=== PATIENT | male | born 1965 | race Caucasian/White ===

== ENCOUNTER 2024-07-24 18:06 | Inpatient (IN) | payer BC, MEDICAID, SELFPAY ==
[2024-07-24] VITALS (8 sets, daily range): BP systolic 124–138; BP diastolic 78–90; PULSE 82–92; RESP 18–19; TEMP 36.6–36.7; O2SAT 89–95; BMI 25.9
--- NOTE | 2024-07-24 18:11 | XRR_ITS ---
PROCEDURE INFORMATION: Exam: XR Chest Exam date and time: 07/24/2024 6:44 PM Age: 59 years old Clinical indication: Shortness of breath TECHNIQUE: Imaging protocol: Radiologic exam of the chest. Views: 1 view. COMPARISON: No relevant prior studies available. FINDINGS: Lungs: Unremarkable. No consolidation. Pleural spaces: Unremarkable. No pleural effusion. No pneumothorax. Heart/Mediastinum: Unremarkable. No cardiomegaly. Bones/joints: Unremarkable. XR/XR chest 1V portable [id number] IMPRESSION: No acute findings.
--- NOTE | 2024-07-24 18:20 | ECG_ITS ---
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 [email or web address]
--- NOTE | 2024-07-24 18:24 | ED_ITS ---
HPI - SOB/Dyspnea 2 General: Chief Complaint: Shortness of Breath/Dyspnea Stated Complaint: COPD Time Seen by Provider: 07/24/24 18:07 History of Present Illness: HPI Narrative: 59-year-old man with a history of tobacc o dependence and COPD who presents emergency room by ambulance with shortness of breath. He has had increased cough. He has some pain in his chest with his cough. No lower extremity swelling. No known fevers but he has felt hot at times he says. No altered mental status. No focal motor deficits. No nausea or vomiting Related Data Allergies Allergy/AdvReac Type Severity Reaction Status Date / Time quetiapine [From Seroquel] Allergy ADR-Anxiety Verified 07/24/24 18:12 Review of Systems 2 Narrative: Constitutional symptoms: Negative except as documented in HPI. Skin symptoms: Negative except as documented in HPI. Eye symptoms: Negative except as documented in HPI. ENMT symptoms: Negative except as documented in HPI. Respiratory symptoms: Negative except as documented in HPI. Cardiovascular symptoms: Negative except as documented in HPI. Gastrointestinal symptoms: Negative except as documented in HPI. Genitourinary symptoms: Negative except as documented in HPI. Musculoskeletal symptoms: Negative except as documented in HPI. Neurologic symptoms: Negative except as documented in HPI. Psychiatric symptoms: Negative except as documented in HPI. Endocrine symptoms: Negative except as documented in HPI. Physical Exam 2 Narrative: EXAM NARRATIVE: General: Alert, no acute distress. Skin: Warm, dry. Head: Normocephalic, atraumatic. Neck: Supple, trachea midline. Eye: Extraocular movements are intact. Ears, nose, mouth and throat: Oral mucosa moist. Cardiovascular: Regular rate and rhythm, Normal peripheral perfusion. Respiratory: coarse, scattered wheeze, mild increased wob. tachypnea, breath sounds are equal, Symmetrical chest wall expansion. Gastrointestinal: Soft, Nontender, Non distended, Normal bowel sounds. Musculoskeletal: Normal ROM, no deformity. Neurological: Alert and oriented to person, place, time, and situation, No focal neurological deficit observed. Psychiatric: Cooperative, appropriate mood & affect. Course 2 Vital Signs: Vital signs: Vital Signs Temperature 97.8 F 07/24/24 18:07 Pulse Rate 82 07/24/24 18:52 Respiratory Rate 18 07/24/24 18:30 Blood Pressure 130/85 07/24/24 18:52 Pulse Oximetry 91 07/24/24 18:52 Oxygen Delivery Me thod Room Air 07/24/24 18:30 MDM - SOB/Dyspnea Medical Decision Making Differential diagnosis for patient with shortness of breath includes but is not limited to and based on the above HPI, review of systems and physical exam: Pneumonia. Bronchitis. Asthma or COPD with acute exacerbation. Acute coronary syndrome / [place]. Pulmonary embolism. Anxiety. Congestive heart failure. Viral infections including influenza and Covid-19. Atrial fibrillation. Anxiety. Pleural effusion. Pneumothorax. Orders placed to evaluate differential diagnosis based on the above differential, HPI and physical exam EKG: Time 1820. Rate 79. Normal sinus rhythm, No ST-T changes, no ectopy, normal [place] & QRS intervals, This was reviewed and interpreted by myself the ER physician at 1825 Chest x-ray: No acute process. No infiltrate. No pneumothorax. This was reviewed and interpreted by myself the emergency room physician. I also reviewed the radiology report. Lab Review: Laboratory results were reviewed and interpreted by myself the emergency room physician. Leukocytosis with a white count 15.6. Hemoglobin is 18.6, slightly elevated. BUN/creatinine are normal at 7 and 0.6. Flu COVID and RSV are negative. Liver enzymes are normal. proBNP is negative. Lactate was slightly elevated at 2.7. ABG is 7.44/36/58 with an O2 sat of 92% on room air I reviewed the patient's medical record. Reexamination: When I entered the room to reexamine the patient he was sleeping. His oxygen saturation was in the mid 80s with a good waveform. He awoke without difficulty. Lungs still sound very tight and wheezy. Consultation: I spoke with Dr. Munoz who is on-call for the hospitalist service who agrees to admission to observation Assessment and plan: COPD with acute exacerbation Hypoxemia Tobacco dependence -2 updrafts, Solu-Medrol and doxycycline in the emergency room - I discussed the patient with the hospitalist on-call who is admitting the patient. - Discussed findings and plan with patient. Answered any questions. - All laboratory values were reviewed and interpreted personally by myself, the ER physician - All imaging was reviewed and interpreted personally by myself, the ER physician. - Evaluation and treatment of this problem were appropriate in the emergency setting Lab Data 07/24/24 18:42 07/24/24 18:42 Labs/Radiology: Laboratory Results WBC 15.63 10^3/uL (3.29-11.43) H 07/24/24 18:42 RBC 6.01 10^6/uL (3.85-5.65) H 07/24/24 18:42 Hgb 18.60 g/dL (11.27-16.99) H 07/24/24 18:42 Hct 54.9 % (37-53) H 07/24/24 18:42 MCV 91.3 fl (82-101) 07/24/24 18:42 MCH 30.9 pg (27-33) 07/24/24 18:42 MCHC 33.9 g/dL (30-55) 07/24/24 18:42 RDW 13.9 % (12.1-15.1) 07/24/24 18:42 Plt Count 155 10^3/cmm (157-399) L 07/24/24 18:42 MPV 12.1 fL (7.4-10.4) H 07/24/24 18:42 Neut % (Auto) 80.7 % 07/24/24 18:42 Lymph % (Auto) 10.7 % 07/24/24 18:42 [place] % (Auto) 7.9 % 07/24/24 18:42 Eos % (Auto) 0.2 % 07/24/24 18:42 Baso % (Auto) 0.2 % 07/24/24 18:42 Neut # (Auto) 12.62 10^3/uL (1.8-7.7) H 07/24/24 18:42 Lymph # (Auto) 1.7 10^3/uL (0.8-4.8) 07/24/24 18:42 [place] # (Auto) 1.2 10^3/uL (0.2-0.9) H 07/24/24 18:42 Eos # (Auto) 0.0 10^3/uL (0.0-0.8) 07/24/24 18:42 Baso # (Auto) 0.0 10^3/uL (0.0-0.1) 07/24/24 18:42 Nucleated RBC % (auto) 0 % 07/24/24 18:42 Nucleated RBCs # 0.0 /100WBC 07/24/24 18:42 Specimen Type Arterial 07/24/24 18:31 Sample Site Radial, left 07/24/24 18:31 ABG pH 7.44 (7.35-7.45) 07/24/24 18:31 ABG pCO2 36.1 mmHg (35-45) 07/24/24 18:31 ABG pO2 57.9 mmHg (80.0-100.0) L 07/24/24 18:31 ABG PO2/FiO2 Ratio 275 07/24/24 18:31 ABG HCO3 24.7 mmol/L (22-26) 07/24/24 18:31 ABG O2 Saturation 92.1 07/24/24 18:31 ABG Base Excess 1.0 mmol/L (-2.0-2.0) 07/24/24 18:31 [place] Test Pos 07/24/24 18:31 A-a O2 Gradient 5.9 mmHg (5-10) 07/24/24 18:31 Hematocrit 57.4 % (42-52) H 07/24/24 18:31 Hgb O2 Saturation 86.1 % (95-100) L 07/24/24 18:31 Carboxyhemoglobin 5.5 %THgb (0.4-20.1) 07/24/24 18:31 Methemoglobin 0.9 % (0.4-1.5) 07/24/24 18:31 Total Hemoglobin 18.7 g/dL (14-18) H 07/24/24 18:31 Sodium 140.0 mmol/L (131-143) 07/24/24 18:31 Potassium 3.7 mmol/L (3.5-5.0) 07/24/24 18:31 Glucose 108.0 mg/dL (70-115) 07/24/24 18:31 Ionized Calcium 1.1 mmol/L (1.1-1.4) 07/24/24 18:31 O2 Delivery Device Room air 07/24/24 18:31 FiO2 21.0 % 07/24/24 18:31 Laboratory Tester ID Amh 07/24/24 18:31 Sodium 136 mmol/L (136-145) 07/24/24 18:42 Potassium 4.0 mmol/L (3.5-5.1) 07/24/24 18:42 Chloride 96 mmol/L (98-107) L 07/24/24 18:42 Carbon Dioxide 24 mmol/L (22-29) 07/24/24 18:42 Anion Gap 20.0 (5-19) H 07/24/24 18:42 BUN 7 mg/dL (8-23) L 07/24/24 18:42 Creatinine 0.6 mg/dL (0.7-1.2) L 07/24/24 18:42 GFR Calculation 137.0 mL/min (90-130) H 07/24/24 18:42 Glucose 101 mg/dL (65-115) 07/24/24 18:42 Calculated Osmolality 280 mOsm/kg (285-295) L 07/24/24 18:42 Lactic Acid 2.7 mmol/L (0.5-2.2) H 07/24/24 18:42 Calcium 9.6 mg/dL (8.5-10.5) 07/24/24 18:42 Total Bilirubin 0.8 mg/dL (0.15-1.2) 07/24/24 18:42 AST 16 U/L (0-40) 07/24/24 18:42 ALT 17 U/L (0-41) 07/24/24 18:42 Alkaline Phosphatase 112 U/L (40-130) 07/24/24 18:42 Troponin T Baseline 7 ng/L (0-15) 07/24/24 18:42 NT-Pro-B Natriuret Pep 52 pg/mL (0-125) 07/24/24 18:42 Total Protein 7.0 g/dL (6.6-8.7) 07/24/24 18:42 Albumin 4.7 g/dL (3.5-5.2) 07/24/24 18:42 Globulin 2.3 g/dL (1.3-4.6) 07/24/24 18:42 Coronavirus (PCR) Negative (Negative) 07/24/24 18:49 Influenza A (PCR) Negative (Negative) 07/24/24 18:49 Influenza Type B (PCR) Negative (Negative) 07/24/24 18:49 RSV (PCR) Negative (Negative) 07/24/24 18:49 All radiology interpretation(s) finalized by discharge Discharge Plan Discharge Patient Disposition: Placed in Observation Clinical Impression: COPD with acute exacerbation, Hypoxemia, Tobacco dependence Coding Level of Care Code ED 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
[2024-07-24] MEDS: ipratropium-albuterol 3 mL Neb INHALATION (18:29)
[2024-07-24] MEDS: albuterol 2.5 mg/3 mL Neb INHALATION (18:29)
[2024-07-24 18:42] LABS: ABG PCO2 36.1 mmHg (35-45); ABG PH Result 7.44 (7.35-7.45); Alveolar-Arterial Oxygen Gradi 5.9 mmHg (5-10); Arterial Blood Gas Hematocrit 57.4 % (42-52); Blood Gas Allen Test Pos; Blood Gas Operator Identificat AMH; Blood Gas Sample Site Radial, left; Blood Gas Sample Type Arterial; Carboxyhemoglobin 5.5 %THgb (0.4-20.1); HCO3 ABG 24.7 mmol/L (22-26); HGB O2 Sat 86.1 % (95-100); Ionized Calcium Level - ABG 1.1 mmol/L (1.1-1.4); Methemoglobin 0.9 % (0.4-1.5); Oxygen Device ROOM AIR; Oxygen Saturation ABG 92.1; PO2 ABG 57.9 mmHg (80.0-100.0); PO2 FiO2 Ratio Arterial Blood 275; Potassium Level - ABG 3.7 mmol/L (3.5-5.0); Total Hemoglobin 18.7 g/dL (14-18)
[2024-07-24] MEDS: methylPREDNISolone sod succ 125 mg/2 mL INJ IVP (18:50)
[2024-07-24 18:55] LABS: Basophils % 0.2 %; Eosinophils % 0.2 %; Hematocrit 54.9 % (37-53); Lymphocytes # 1.7 10^3/uL (0.8-4.8); Lymphocytes % 10.7 %; Mean Corpuscular HGB Conc 33.9 g/dL (30-55); Mean Corpuscular Hemoglobin 30.9 pg (27-33); Mean Corpuscular Volume 91.3 fl (82-101); Mean Platelet Volume 12.1 fL (7.4-10.4); Monocytes # 1.2 10^3/uL (0.2-0.9); Monocytes % 7.9 %; Neutrophils # 12.62 10^3/uL (1.8-7.7); Neutrophils % 80.7 %; Nucleated Red Blood Cells % 0 %; Platelet Count 155 10^3/cmm (157-399); Red Blood Count 6.01 10^6/uL (3.85-5.65); Red Cell Distribution Width 13.9 % (12.1-15.1); White Blood Count 15.63 10^3/uL (3.29-11.43)
[2024-07-24 19:16] LABS: Lactic Sepsis W/Reflex 2.7 mmol/L (0.5-2.2)
[2024-07-24 19:20] LABS: Troponin(5th) Baseline 7 ng/L (0-15)
[2024-07-24 19:27] LABS: Alanine Aminotransferase 17 U/L (0-41); Albumin Level 4.7 g/dL (3.5-5.2); Alkaline Phosphatase 112 U/L (40-130); Aspartate Amino Transferase 16 U/L (0-40); Blood Urea Nitrogen 7 mg/dL (8-23); Calcium 9.6 mg/dL (8.5-10.5); Carbon Dioxide 24 mmol/L (22-29); Chloride 96 mmol/L (98-107); Creatinine Clr Calc Pharmacy 157.2144; Globulin 2.3 g/dL (1.3-4.6); Glucose 101 mg/dL (65-115); NT Pro B Type Natriuretic Pept 52 pg/mL (0-125); Osmolality Calculated 280 mOsm/kg (285-295); Sodium 136 mmol/L (136-145); Total Bilirubin 0.8 mg/dL (0.15-1.2)
[2024-07-24 19:38] LABS: Covid PCR NEGATIVE (Negative); Influenza A NEGATIVE (Negative); Influenza B NEGATIVE (Negative); Respiratory Syncytial Virus Ce NEGATIVE (Negative)
[2024-07-24] MEDS: doxycycline 100 MG in sodium chloride 0.9% (plus) 100 ML IV (19:39)
[2024-07-24 20:03] LABS: Bilirubin Urine Negative (Negative); Blood Urine Negative (Negative); Glucose Urine UA Negative (Normal); Ketones Urine Negative (Negative); Leukocyte Esterase Urine Negative (Negative); Nitrate Urine Negative (Negative); Protein Urine Negative (Negative); Specific Gravity, Urine 1.003 (1.005-1.030); Urine Appearance Clear (CLEAR); Urine Color Yellow (Yellow); Urobilinogen Urine 0.2 mg/dL (Negative); pH Urine 5.5 (5-7)
[2024-07-24 20:07] LABS: Bacteria Urine None Seen /hpf; Hyaline Casts Urine 0-4 /lpf; RBC Urine 0-2 /hpf (0-2); Squamous Epithelial Cell Urine 0-5 /hpf (0-5); WBC Urine 0-5 /hpf (0-5)
[2024-07-24 20:09] LABS: Amphetamines Screen Urine Negative (Negative); Barbiturates Screen Urine Negative (Negative); Benzodiazepines Screen Urine Negative (Negative); Cocaine Screen Urine Negative (Negative); Opiate Screen Urine Negative (Negative); PCP Screen Urine Negative (Negative); THC Screen Urine Negative (Negative)
[2024-07-24 20:12] LABS: D Dimer <= 0.27 ug/mLFEU (0-0.59)
[2024-07-24 20:34] LABS: Procalcitonin 0.06 ng/mL (0-0.5)
[2024-07-24 20:39] LABS: Reflex Lactate Order REFLEX LACTIC ORDERD
--- NOTE | 2024-07-24 21:00 | PM.HP ---
Providers/Chief Complaint Admitting Physician: Demetrius Munoz MD Chief Complaint: COPD History of Present Illness Tanner Rockwell is a 59 year old male with a past medical history of smoking and COPD who presented to the emergency room with shortness of breath. Patient states he had had increased cough over the past 3 to 4 days along with subjective chills. no h/o chest pain, palpitation or syncope. His O2 sat was in the low 80s upon arrival and needed to be placed on supplemental O2 at 3.5 L/min. Review of Systems General: Reports: 10 or more systems reviewed and unremarkable except in HPI and below Const: Denies: fever(s), chills or body aches Eyes: Denies: change in vision, blurry vision or photophobia ENMT: Reports: hoarseness; Denies: throat pain, enlarged tonsils, odynophagia or nasal congestion Card: Denies: chest pain, palpitations, irregular heart rhythm, edema, swelling of feet/ankles, lightheadedness, pre-syncope, dyspnea on exertion or orthopnea Resp: Denies: dyspnea, productive cough, non-productive cough, wheezing, stridor, pain on inspiration, change in phlegm color, hemoptysis or chest congestion GI: Denies: abdominal pain, nausea, vomiting, hematemesis, coffee ground emesis, dysphagia, heartburn, diarrhea, constipation, GI cramping, change in stool character, hematochezia or melena : Denies: flank pain, dysuria, urinary frequency, urinary urgency, urinary hesitancy or hematuria Musc: Denies: neck pain, back pain, extremity pain, joint swelling, joint warmth or deformity Neuro: Denies: headache(s), numbness in extremities, weakness in extremities, sensory changes, difficulty walking, frequent falls, dizziness, vertigo, behavioral changes, Slurred speech present or seizure-like activity Psych: Denies: anxiety, depression, suicidal ideation or homicidal ideation Endo: Denies: polyuria, polydipsia, tired all the time, cold intolerance or hot flashes Robert/Lymph: Denies: easy bruising or easy bleeding Medications/Allergies Home Medications Medication Instructions Recorded Confirmed Last Taken Type No Known Home Medications 07/24/24 07/24/24 Unknown History Allergies Allergy/AdvReac Type Severity Reaction Status Date / Time quetiapine [From SeroMayvennl] Allergy ADR-Anxiety Verified 07/24/24 18:12 Vitals/I&O/Wt Last Vital Signs Temp 98.3 F 07/25/24 00:00 Pulse 78 07/25/24 00:00 Resp 22 H 07/25/24 00:00 BP 118/63 07/25/24 00:00 Pulse Ox 92 07/25/24 00:00 O2 Del Method Nasal Cannula 07/25/24 00:00 07/24/24 07/24/24 07/25/24 14:59 22:59 06:59 Intake Total 100 / 100 Balance 100 / 100 Weight last 48 hrs Weight 90.038 kg Weight 91.626 kg Physical Exam Narrative: General: No acute distress, AO x3 HEENT: PERRLA, pupils bilaterally equal and reactive, pallors not present Chest: Bilateral wheezing on exam CVS: S1-S2 regular, no murmurs, no tachycardia, no gallops, no rubs Abdomen: wheezing to auscultation B/L Neuro: No focal deficits, no facial deformity, AO x3, power 5/5 in all limbs Data 07/24/24 18:42 07/24/24 18:42 Micro: Microbiology 07/24/24 19:44 Bacterial Antigens - Final Urine Kidney 07/24/24 21:33 Blood Culture - Preliminary Blood SPECIMEN COLLECTED 07/24/24 21:28 Blood Culture - Preliminary Blood SPECIMEN COLLECTED Other data: Signed Patient: Tanner Rockwell Unit #: [id number] : 1965 Age/Sex: 59 / M ADM Date: 07/24/24 Loc: ER Room/Bed: Attending Dr: Ordering Provider/Ordering MD: Sandra Kenney MD Date of Service: 07/24/24 Procedure(s): XR chest 1V portable [id number] Accession Number(s): [id number] Report Number: [id number] PROCEDURE INFORMATION: Exam: XR Chest Exam date and time: 07/24/2024 6:44 PM Age: 59 years old Clinical indication: Shortness of breath TECHNIQUE: Imaging protocol: Radiologic exam of the chest. Views: 1 view. COMPARISON: No relevant prior studies available. FINDINGS: Lungs: Unremarkable. No consolidation. Pleural spaces: Unremarkable. No pleural effusion. No pneumothorax. Heart/Mediastinum: Unremarkable. No cardiomegaly. Bones/joints: Unremarkable. XR/XR chest 1V portable [id number] IMPRESSION: No acute findings. A&P Assessment and plan (1) COPD with acute exacerbation: Admit to [facility] for COPD exacerbation Methylprednisolone 40 mg IV every 6 hours duoneb q6h, budesonide q12h empiric levofloxacin 750 mg po daialy given leukocytosis, cannot r/o acute bacterial bronchitis normal D dimer, less likely PE Plan dvt ppx: heparin 5000 s/c q12h Attestations Medical Necessity Statement*: less than 2 midnight stay anticipated at this time Coding Level of Care Code Acute Code for Chg Fwd Moderate MDM includes number and complexity of problems actively addressed during encounter, amount and/or complexity of data reviewed/ordered and described risk of complication, morbidity or mortality of management as documented Diagnoses COPD with acute exacerbation J44.1
[2024-07-24] MEDS: methylPREDNISolone sod succ 40 mg/mL INJ IVP (21:08)
[2024-07-24 22:17] LABS: Troponin 5 2HR 6.54 ng/L (0-15)
[2024-07-24 22:20] LABS: Lactic Acid level (Lactate) 3.7 mmol/L (0.5-2.2)
[2024-07-24 22:23] LABS: Troponin 5 2HR Delta -0.46 ABS# (0-10)
[2024-07-25] VITALS (14 sets, daily range): BP systolic 113–149; BP diastolic 63–85; PULSE 63–84; RESP 16–23; TEMP 36.4–36.8; O2SAT 91–96
[2024-07-25] MEDS: methylPREDNISolone sod succ 40 mg/mL INJ IVP ×4 (01:26→20:35)
[2024-07-25] MEDS: levalbuterol 0.63 mg/3 mL Neb INHALATION ×2 (04:29→14:08)
[2024-07-25] MEDS: ipratropium 0.5 mg/2.5 mL Neb INHALATION ×2 (04:29→14:08)
[2024-07-25] MEDS: famotidine 20 mg Tablet PO ×2 (09:18→17:59)
[2024-07-25] MEDS: levoFLOXacin 750 mg Tablet PO (09:18)
--- NOTE | 2024-07-25 12:29 | P.PN_ITS ---
Subjective 2 Subjective: Seen him at bedside this morning. States feeling better as compared to admission. Has had 3 episodes of COPD exacerbation in last 1 year, he is still active smoker. 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 Planning to go to [facility] after discharge. Medications: Reviewed: Yes Vitals/I&O/Wt Last Vital Signs Temp 97.8 F 07/25/24 11:59 Pulse 69 07/25/24 11:59 Resp 16 07/25/24 11:59 BP 128/79 07/25/24 11:59 Pulse Ox 93 07/25/24 11:59 O2 Del Method Nasal Cannula 07/25/24 11:59 O2 Flow Rate 3 07/25/24 08:58 07/24/24 07/25/24 07/25/24 22:59 06:59 14:59 Intake Total 100 / 100 840 / 840 Output Total 250 / 250 450 / 450 Balance 100 / 100 -250 / -150 390 / 390 Weight last 48 hrs Weight 87.18 kg Weight 89.584 kg Weight 90.038 kg Weight 91.626 kg Physical Exam 2 Narrative: General: No acute distress, AO x3 HEENT: PERRLA, pupils bilaterally equal and reactive, pallors not present Chest: Bilateral wheezing on exam CVS: S1-S2 regular, no murmurs, no tachycardia, no gallops, no rubs Abdomen: wheezing to auscultation B/L Neuro: No focal deficits, no facial deformity, AO x3, power 5/5 in all limbs Data 07/24/24 18:42 07/24/24 18:42 Micro: Microbiology 07/24/24 19:44 Bacterial Antigens - Final Urine Kidney 07/24/24 21:33 Blood Culture - Preliminary Blood SPECIMEN COLLECTED 07/24/24 21:28 Blood Culture - Preliminary Blood SPECIMEN COLLECTED A&P Assessment and plan (1) COPD with acute exacerbation: Admit to [facility] for COPD exacerbation Methylprednisolone 40 mg IV every 6 hours duoneb q6h, budesonide q12h empiric levofloxacin 750 mg po daialy given leukocytosis, cannot r/o acute bacterial bronchitis normal D dimer, less likely PE 07/25/24 Bilateral chest examination improved. Will continue current management. WBC count was 15.6 on admission hence continue with antibiotics. Anticipating discharge in 24 hours Plan dvt ppx: heparin 5000 s/c q12h Attestations 2 Medical Necessity Statement*: He needs continued hospitalization for management of COPD exacerbation with IV steroids and antibiotics for leukocytosis. Time Spent in Patient Care: 15 minute Coding Level of Care Code Acute Code for Chg Fwd Diagnoses COPD with acute exacerbation J44.1 Time Spent (min) 15
[2024-07-25 16:13] LABS: Glucose Point of Care 160 mg/dL (70-110)
[2024-07-25] MEDS: morphine 4 mg/mL SDV 1 mL 2 MG IVP (20:33)
[2024-07-26 03:54] VITALS: BP 131/72; PULSE 59; RESP 22; TEMP 36.3; O2SAT 97
[2024-07-26 07:38] VITALS: PULSE 78; RESP 18; O2SAT 96
[2024-07-26 07:54] VITALS: BP 131/84; PULSE 56; RESP 17; TEMP 36.4; O2SAT 97
[2024-07-26 10:00] VITALS: BMI 24.9
[2024-07-26 11:57] VITALS: BP 127/73; PULSE 96; RESP 18; TEMP 36.3; O2SAT 93
--- NOTE | 2024-07-26 12:14 | PM.DCS ---
Discharge Providers Date of Admission: 07/25/24 12:32 Date of Discharge: July 26, 2024 Attending Provider at Admission: Demetrius Munoz MD Attending Provider at Discharge: Shital Fisher MD Diagnoses at Discharge Discharge Diagnosis (1) COPD with acute exacerbation: Status: Acute Reason for Visit Reason for Visit: COPD Brief History: Tanner Rockwell is a 59 year old male with a past medical history of smoking and COPD who presented to the emergency room with shortness of breath. Patient states he had had increased cough over the past 3 to 4 days along with subjective chills. no h/o chest pain, palpitation or syncope. His O2 sat was in the low 80s upon arrival and needed to be placed on supplemental O2 at 3.5 L/min. Hospital Course Hospital Course Assessment and plan (1) COPD with acute exacerbation: Admit to [facility] for COPD exacerbation Methylprednisolone 40 mg IV every 6 hours duoneb q6h, budesonide q12h empiric levofloxacin 750 mg po daialy given leukocytosis, cannot r/o acute bacterial bronchitis normal D dimer, less likely PE 07/25/24 Bilateral chest examination improved. Will continue current management. WBC count was 15.6 on admission hence continue with antibiotics. Anticipating discharge in 24 hours 07/26/24 He is doing much better today, saturating well on room air 95% need to follow up with pcp in 1 week. Physical Exam Narrative: General: No acute distress, AO x3 HEENT: PERRLA, pupils bilaterally equal and reactive, pallors not present Chest: Bilateral wheezing on exam CVS: S1-S2 regular, no murmurs, no tachycardia, no gallops, no rubs Abdomen: wheezing to auscultation B/L Neuro: No focal deficits, no facial deformity, AO x3, power 5/5 in all limbs Discharge Data Studies Completed and Pending Completed Studies During Hospitalization Category Date Time Status XR chest 1V portable [id number] Stat Exams 07/24/24 18:11 Completed Pending at discharge Category Date Time Status BMP [Basic Metabolic Panel] AM LABS Lab 07/26/24 04:00 Ordered Blood Culture Stat Lab 07/24/24 21:33 Results CBC Auto Diff [Complete Blood Count w/Auto] AM LABS Lab 07/26/24 04:00 Ordered Radiology Impressions Chest X-Ray 07/24/24 18:11 IMPRESSION: No acute findings. Laboratory Results WBC 15.63 10^3/uL (3.29-11.43) H 07/24/24 18:42 RBC 6.01 10^6/uL (3.85-5.65) H 07/24/24 18:42 Hgb 18.60 g/dL (11.27-16.99) H 07/24/24 18:42 Hct 54.9 % (37-53) H 07/24/24 18:42 MCV 91.3 fl (82-101) 07/24/24 18:42 MCH 30.9 pg (27-33) 07/24/24 18:42 MCHC 33.9 g/dL (30-55) 07/24/24 18:42 RDW 13.9 % (12.1-15.1) 07/24/24 18:42 Plt Count 155 10^3/cmm (157-399) L 07/24/24 18:42 MPV 12.1 fL (7.4-10.4) H 07/24/24 18:42 Neut % (Auto) 80.7 % 07/24/24 18:42 Lymph % (Auto) 10.7 % 07/24/24 18:42 [place] % (Auto) 7.9 % 07/24/24 18:42 Eos % (Auto) 0.2 % 07/24/24 18:42 Baso % (Auto) 0.2 % 07/24/24 18:42 Neut # (Auto) 12.62 10^3/uL (1.8-7.7) H 07/24/24 18:42 Lymph # (Auto) 1.7 10^3/uL (0.8-4.8) 07/24/24 18:42 [place] # (Auto) 1.2 10^3/uL (0.2-0.9) H 07/24/24 18:42 Eos # (Auto) 0.0 10^3/uL (0.0-0.8) 07/24/24 18:42 Baso # (Auto) 0.0 10^3/uL (0.0-0.1) 07/24/24 18:42 Nucleated RBC % (auto) 0 % 07/24/24 18:42 Nucleated RBCs # 0.0 /100WBC 07/24/24 18:42 D-Dimer <= 0.27 ug/mLFEU (0-0.59) 07/24/24 18:42 Specimen Type Arterial 07/24/24 18:31 Sample Site Radial, left 07/24/24 18:31 ABG pH 7.44 (7.35-7.45) 07/24/24 18:31 ABG pCO2 36.1 mmHg (35-45) 07/24/24 18:31 ABG pO2 57.9 mmHg (80.0-100.0) L 07/24/24 18:31 ABG PO2/FiO2 Ratio 275 07/24/24 18:31 ABG HCO3 24.7 mmol/L (22-26) 07/24/24 18:31 ABG O2 Saturation 92.1 07/24/24 18:31 ABG Base Excess 1.0 mmol/L (-2.0-2.0) 07/24/24 18:31 [place] Test Pos 07/24/24 18:31 A-a O2 Gradient 5.9 mmHg (5-10) 07/24/24 18:31 Hematocrit 57.4 % (42-52) H 07/24/24 18:31 Hgb O2 Saturation 86.1 % (95-100) L 07/24/24 18:31 Carboxyhemoglobin 5.5 %THgb (0.4-20.1) 07/24/24 18:31 Methemoglobin 0.9 % (0.4-1.5) 07/24/24 18:31 Total Hemoglobin 18.7 g/dL (14-18) H 07/24/24 18:31 Sodium 140.0 mmol/L (131-143) 07/24/24 18:31 Potassium 3.7 mmol/L (3.5-5.0) 07/24/24 18:31 Glucose 108.0 mg/dL (70-115) 07/24/24 18:31 Ionized Calcium 1.1 mmol/L (1.1-1.4) 07/24/24 18:31 O2 Delivery Device Room air 07/24/24 18:31 FiO2 21.0 % 07/24/24 18:31 [place] ID Amh 07/24/24 18:31 Sodium 136 mmol/L (136-145) 07/24/24 18:42 Potassium 4.0 mmol/L (3.5-5.1) 07/24/24 18:42 Chloride 96 mmol/L (98-107) L 07/24/24 18:42 Carbon Dioxide 24 mmol/L (22-29) 07/24/24 18:42 Anion Gap 20.0 (5-19) H 07/24/24 18:42 BUN 7 mg/dL (8-23) L 07/24/24 18:42 Creatinine 0.6 mg/dL (0.7-1.2) L 07/24/24 18:42 GFR Calculation 137.0 mL/min (90-130) H 07/24/24 18:42 Glucose 101 mg/dL (65-115) 07/24/24 18:42 POC Glucose 160 mg/dL (70-110) H 07/25/24 16:06 Calculated Osmolality 280 mOsm/kg (285-295) L 07/24/24 18:42 Lactic Acid 2.7 mmol/L (0.5-2.2) H 07/24/24 18:42 Lactic Acid (Sepsis) 3.7 mmol/L (0.5-2.2) H 07/24/24 21:33 Calcium 9.6 mg/dL (8.5-10.5) 07/24/24 18:42 Total Bilirubin 0.8 mg/dL (0.15-1.2) 07/24/24 18:42 AST 16 U/L (0-40) 07/24/24 18:42 ALT 17 U/L (0-41) 07/24/24 18:42 Alkaline Phosphatase 112 U/L (40-130) 07/24/24 18:42 Troponin T Baseline 7 ng/L (0-15) 07/24/24 18:42 Troponin T 120 Minute 6.54 ng/L (0-15) 07/24/24 21:33 Delta Troponin T -0.46 ABS# (0-10) L 07/24/24 21:33 NT-Pro-B Natriuret Pep 52 pg/mL (0-125) 07/24/24 18:42 Total Protein 7.0 g/dL (6.6-8.7) 07/24/24 18:42 Albumin 4.7 g/dL (3.5-5.2) 07/24/24 18:42 Globulin 2.3 g/dL (1.3-4.6) 07/24/24 18:42 Procalcitonin 0.06 ng/mL (0-0.5) 07/24/24 18:42 Urine Color Yellow (Yellow) 07/24/24 19:44 Urine Appearance Clear (CLEAR) 07/24/24 19:44 Urine pH 5.5 (5-7) 07/24/24 19:44 Ur Specific [place] 1.003 (1.005-1.030) L 07/24/24 19:44 Urine Protein Negative (Negative) 07/24/24 19:44 Urine Glucose (UA) Negative (Normal) 07/24/24 19:44 Urine Ketones Negative (Negative) 07/24/24 19:44 Urine Blood Negative (Negative) 07/24/24 19:44 Urine Nitrate Negative (Negative) 07/24/24 19:44 Urine Bilirubin Negative (Negative) 07/24/24 19:44 Urine Urobilinogen 0.2 mg/dL (Negative) 07/24/24 19:44 Ur Leukocyte Esterase Negative (Negative) 07/24/24 19:44 Urine RBC 0-2 /hpf (0-2) 07/24/24 19:44 Urine WBC 0-5 /hpf (0-5) 07/24/24 19:44 Ur Squamous Epith Cells 0-5 /hpf (0-5) 07/24/24 19:44 Amorphous Sediment Not Reportable 07/24/24 19:44 Urine Bacteria None seen /hpf (NONE) 07/24/24 19:44 Hyaline Casts 0-4 /lpf H 07/24/24 19:44 Urine Opiates Screen Negative ng/mL (Negative) 07/24/24 19:44 Ur Barbiturates Screen Negative ng/mL (Negative) 07/24/24 19:44 Ur Phencyclidine Scrn Negative ng/mL (Negative) 07/24/24 19:44 Ur Amphetamines Screen Negative ng/mL (Negative) 07/24/24 19:44 U Benzodiazepines Scrn Negative ng/mL (Negative) 07/24/24 19:44 Urine Cocaine Screen Negative ng/mL (Negative) 07/24/24 19:44 U Marijuana (THC) Screen Negative ng/mL (Negative) 07/24/24 19:44 Coronavirus (PCR) Negative (Negative) 07/24/24 18:49 Influenza A (PCR) Negative (Negative) 07/24/24 18:49 Influenza Type B (PCR) Negative (Negative) 07/24/24 18:49 RSV (PCR) Negative (Negative) 07/24/24 18:49 Vitals Last Vital Signs Temp 97.4 F L 07/26/24 11:57 Pulse 96 07/26/24 11:57 Resp 18 07/26/24 11:57 BP 127/73 07/26/24 11:57 Pulse Ox 93 07/26/24 11:57 O2 Del Method Room Air 07/26/24 11:57 O2 Flow Rate 3 07/26/24 07:38 Discharge Plan Discharge Patient Disposition: Home Condition: Stable Prescriptions: New levofloxacin 750 mg Tablet 750 mg PO DAILY 3 Days Qty: 3 0RF methylprednisolone [Medrol (Mo)] 4 mg tablets,dose pack See Rx Instructions .ROUTE .COMPLEX Qty: 21 0RF Rx Instructions: for 6 days albuterol sulfate 90 mcg/actuation HFA aerosol inhaler 2 inh inhalation Q4H PRN (Reason: shortness of breath or wheezing) Qty: 8.5 0RF Discharge Orders: Discharge Order (Routine); Ordered 07/26/24 Ordered By: Shital Fisher Discharge Diet: Cardiac Discharge Activity: Increase activity as tolerated Patient Instructions: Opioid Safety Discharge Attestations Time Spent in Discharge Care*: less than 30 min Quality Metrics Clinical Quality Measures [ No reported AMI, CVA or VTE this stay] Coding Level of Care Code Acute Code for [facility] Fwd Diagnoses COPD with acute exacerbation J44.1 Time Spent (min) 15
[2024-07-26 13:46] VITALS: BP 127/73; PULSE 96; RESP 18; TEMP 36.3; O2SAT 93
== END 2024-07-26 13:05 | disposition home or self-care (01) | DRG 191 ==
LOC: ER 19:38 → MEDSURG 20:37
PROVIDERS: Admitting Provider Student in an Organized Health Care Education/Training Program; Emergency Provider Emergency Medicine; Visit Provider Internal Medicine
DX: J44.1 Chronic obstructive pulmonary disease with (acute) exacerbation (principal); Z59.00 Homelessness unspecified; F17.210 Nicotine dependence, cigarettes, uncomplicated
CPT/HCPCS: 0241U; 36415; 36416; 36600; 71045; 80051; 80053; 80306; 81001; 82330; 82805; 82962; 83605; 83880; 84145; 84484; 85025; 85378; 86403; 87040; 93005; 94640; 96365; 96375; 99285; G0378; J2270; J2919; J3490; J7613; J7614; J7644